=== PATIENT | female | born 1985 | race Two or more races ===

== ENCOUNTER 2019-11-26 10:34 | Outpatient (CLI) | payer OTHER | END 2019-11-26 10:47 | disposition home or self-care (01) | LOC: SONOGRAMA 10:34 | DX: N60.11 Diffuse cystic mastopathy of right breast (principal); N60.12 Diffuse cystic mastopathy of left breast; R92.0 Mammographic microcalcification found on diagnostic imaging of breast ==

== ENCOUNTER 2021-02-20 07:50 | Outpatient (CLI) | payer OTHER | END 2021-02-20 07:57 | disposition home or self-care (01) | LOC: RAD 07:50 | PROVIDERS: ATTEND Physical Medicine & Rehabilitation | DX: M54.2 Cervicalgia (principal) ==

== ENCOUNTER 2021-07-20 08:12 | Outpatient (CLI) | payer OTHER | END 2021-07-20 08:18 | disposition home or self-care (01) | LOC: SONOGRAMA 08:12 → MAMO-SONO 08:15 → SONOGRAMA 08:18 | PROVIDERS: ATTEND Family Medicine Adult Medicine | DX: N64.89 Other specified disorders of breast (principal) ==

== ENCOUNTER 2022-11-24 12:56 | Outpatient (CLI) | payer OTHER | END 2022-11-24 13:12 | disposition home or self-care (01) | LOC: MAMO-SONO 12:56 | PROVIDERS: ATTEND Family Medicine Adult Medicine | DX: N64.9 Disorder of breast, unspecified (principal) ==